=== PATIENT | female | born 1990 | race American Indian/Alaskan Native ===

== ENCOUNTER 2020-07-22 11:34 | Emergency (ER) | payer BC ==
[2020-07-22 13:24] LABS: Hematocrit 20.2 % (30.3-42.9); Mean Corpuscular HGB Conc 29 % (30-34); Platelet Count 584 K/mm3 (140-440); Red Blood Count 3.18 M/mm3 (3.65-5.03)
[2020-07-22 13:31] LABS: Hemoglobin 5.9 gm/dl (10.1-14.3); Mean Corpuscular Volume 64 fl (79-97); Red Cell Distribution Width 27.7 % (13.2-15.2)
[2020-07-22] MEDS ORDERED: SODIUM CHLORIDE 0.9% 500 ML 500 ML IV ONE (14:14)
[2020-07-22] MEDS ORDERED: SODIUM CHLORIDE 0.9% 500 ML 500 ML ONE (14:37)
[2020-07-22 15:09] LABS: Basophils % (Manual) 0 % (0.0-1.8); Eosinophils % (Manual) 0 % (0.0-4.3); Total Cells Counted 100
[2020-07-22 15:10] LABS: Anisocytosis 3+
[2020-07-22 15:11] LABS: Hypochromasia 2+; Platelet Estimate Consistent w Auto
[2020-07-22 17:12] VITALS: BP 100/54
--- NOTE | 2020-07-22 17:20 | Emergency Department Report ---
- General Chief complaint: Recheck/Abnormal Lab/Rx Stated complaint: LOW IRN BLOOD TRANS Time Seen by Provider: 07/22/20 14:03 Source: patient Mode of arrival: Ambulatory Limitations: No Limitations - History of Present Illness Initial comments: Chief complaint: "I think I need a transfusion." HPI this is a 30-year-old female with history of iron deficiency anemia who presents from her PCPs office with report of low hemoglobin 5. Patient has not had a transfusion on previous occasion. However recently patient has had severe fatigue with palpitations. She also has nausea shortness of breath. She just wants the energy to return back to work. Over the last several months patient has had long heavy menstrual cycles. Several months ago her glazing superintendent prescribed and recommended oral contraceptive therapy. Due to adverse side effects, she stopped taking the medication. Patient currently not menstruating. No previous history of bloody stools or hematemesis. She started taking iron therapy this past weekend. MD Complaint: generalized weakness -: Gradual, month(s) (Several months worse over the past few weeks.) Location: generalized Severity: moderate, severe Consistency: constant Improves with: rest Worsens with: movement, exertion Context: other (Recently diagnosed with severe anemia by PCP.) Associated Symptoms: other (Malaise fatigue nausea shortness of breath palpitations) - Related Data Previous Rx's Medication Instructions Recorded Last Taken Type Famotidine [Pepcid] 20 mg PO BID #10 tablet 06/17/14 Unknown Rx Allergies Allergy/AdvReac Type Severity Reaction Status Date / Time onion [Onion] Allergy Hives Verified 06/16/14 23:27 ED Review of Systems ROS: Stated complaint: LOW IRN BLOOD TRANS Other details as noted in HPI Comment: All other systems reviewed and negative Constitutional: malaise. denies: fever Respiratory: shortness of breath. denies: cough Cardiovascular: palpitations. denies: chest pain ED Past Medical Hx - Past Medical History Previous Medical History?: No - Surgical History Past Surgical History?: No - Social History Smoking Status: Never Smoker Substance Use Type: None - Medications Home Medications: Home Medications Medication Instructions Recorded Confirmed Last Taken Type Famotidine [Pepcid] 20 mg PO BID #10 tablet 06/17/14 Unknown Rx ED Physical Exam - General Limitations: No Limitations General appearance: alert, in no apparent distress - Head Head exam: Present: atraumatic, normocephalic - Eye Eye exam: Present: normal appearance - ENT ENT exam: Present: mucous membranes moist - Neck Neck exam: Present: normal inspection, full ROM - Respiratory Respiratory exam: Present: normal lung sounds bilaterally. Absent: respiratory distress, wheezes, rales, rhonchi - Cardiovascular Cardiovascular Exam: Present: normal rhythm, tachycardia, normal heart sounds. Absent: systolic murmur, diastolic murmur, rubs, gallop - GI/Abdominal GI/Abdominal exam: Present: soft, normal bowel sounds. Absent: distended, tenderness, guarding - Extremities Exam Extremities exam: Present: normal inspection - Neurological Exam Neurological exam: Present: alert, oriented X3 - Psychiatric Psychiatric exam: Present: normal affect, normal mood - Skin Skin exam: Present: warm, dry, intact, normal color. Absent: rash ED Course Vital Signs 07/22/20 07/22/20 07/22/20 12:12 13:46 14:00 Temperature 98.8 F Pulse Rate 100 H 94 H Respiratory 16 14 17 Rate Blood Pressure 106/64 Blood Pressure 112/34 [Right] O2 Sat by Pulse 100 99 100 Oximetry 07/22/20 07/22/20 07/22/20 15:12 15:27 15:57 Temperature 98.2 F 98.5 F Pulse Rate 81 80 79 Respiratory 16 14 16 Rate Blood Pressure 113/51 98/59 100/64 Blood Pressure [Right] O2 Sat by Pulse 100 100 100 Oximetry 07/22/20 07/22/20 07/22/20 16:27 16:57 17:10 Temperature 98.9 F Pulse Rate 84 86 78 Respiratory 16 16 18 Rate Blood Pressure 105/50 105/56 100/54 Blood Pressure [Right] O2 Sat by Pulse 100 100 100 Oximetry ED Medical Decision Making - Lab Data Result diagrams: 07/22/20 12:38 Laboratory Results - last 24 hr 07/22/20 07/22/20 12:38 12:40 WBC 4.9 RBC 3.18 L Hgb 5.9 L* Hct 20.2 L MCV 64 L MCH 19 L MCHC 29 L RDW 27.7 H Plt Count 584 H Add Manual Diff Complete Total Counted 100 Seg Neuts % (Manual) 59.0 Band Neutrophils % 0 Lymphocytes % (Manual) 35.0 Reactive Lymphs % (Man) 0 Monocytes % (Manual) 6.0 Eosinophils % (Manual) 0 Basophils % (Manual) 0 Metamyelocytes % 0 Myelocytes % 0 Promyelocytes % 0 Blast Cells % 0 Nucleated RBC % Not Reportable Seg Neutrophils # Man 2.9 Band Neutrophils # 0.0 Lymphocytes # (Manual) 1.7 Abs React Lymphs (Man) 0.0 Monocytes # (Manual) 0.3 Eosinophils # (Manual) 0.0 Basophils # (Manual) 0.0 Metamyelocytes # 0.0 Myelocytes # 0.0 Promyelocytes # 0.0 Blast Cells # 0.0 WBC Morphology Not Reportable Hypersegmented Neuts Not Reportable Hyposegmented Neuts Not Reportable Hypogranular Neuts Not Reportable Smudge Cells Not Reportable Toxic Granulation Not Reportable Toxic Vacuolation Not Reportable Dohle Bodies Not Reportable Pelger-Huet Anomaly Not Reportable Faviola Rods Not Reportable Platelet Estimate Consistent w auto Clumped Platelets Not Reportable Plt Clumps, EDTA Not Reportable Large Platelets Not Reportable Giant Platelets Not Reportable Platelet Satelliting Not Reportable Plt Morphology Comment Not Reportable RBC Morphology Not Reportable Dimorphic RBCs Not Reportable Polychromasia Not Reportable Hypochromasia 2+ Poikilocytosis Not Reportable Anisocytosis 3+ Microcytosis 2+ Macrocytosis Not Reportable Spherocytes Not Reportable Pappenheimer Bodies Not Reportable Sickle Cells Not Reportable Target Cells Not Reportable Tear Drop Cells Not Reportable Ovalocytes Not Reportable Helmet Cells Not Reportable [place] Bodies Not Reportable [place] Rings Not Reportable Daniel Cells Not Reportable Bite Cells Not Reportable Crenated Cell Not Reportable Elliptocytes Not Reportable Acanthocytes (Spur) Not Reportable Rouleaux Not Reportable Hemoglobin C Crystals Not Reportable Schistocytes Not Reportable Malaria parasites Not Reportable Lb Bodies Not Reportable Hem Pathologist Commnt No Blood Type O POSITIVE Antibody Screen Negative Crossmatch See Detail - Medical Decision Making Ms. Gresham presents with severe anemia presumably due to blood loss of menometrorrhagia versus iron deficiency. Due to tachycardia and orthostasis, urgent transfusion indicated. After transfusion tachycardia resolved. Blood pressure improved. She received 1 unit packed red blood cells according to current recommended guidelines. I have referred patient back to her glazing superintendent. Also referred patient to manager ed. Critical care attestation.: If time is entered above; I have spent that time in minutes in the direct care of this critically ill patient, excluding procedure time. ED Disposition Clinical Impression: Symptomatic anemia, Severe anemia, Microcytic anemia Disposition: TO HOME OR SELFCARE Is pt being admited?: No Does the pt Need Aspirin: No Condition: Stable Instructions: Iron Deficiency Anemia (ED), Iron Rich Diet (ED) Referrals: JASON PATTERSON MD [Staff Physician] - 3-5 Days Forms: Work/School Release Form(ED)
== END 2020-07-22 17:31 | disposition home or self-care (01) ==
LOC: ED 11:34
DX: D50.9 Iron deficiency anemia, unspecified (principal); Z79.899 Other long term (current) drug therapy; Z91.018 Allergy to other foods
CPT/HCPCS: 36415; 36430; 85007; 85025; 86850; 86900; 86901; 86920; 99284; J7040; P9016

== ENCOUNTER 2020-10-25 14:21 | Emergency (ER) | payer BC ==
--- NOTE | 2020-10-25 14:39 | Emergency Department Report ---
Blank Doc - Documentation Documentation: 30-year-old female that presents with headache and generalized weakness. Melanie ent denies any head injuries or trauma. Denies worse headache. Denies any visual changes. Stated started her menstrual cycle 3 days ago and is heavy. Patient stated has history of blood transfusion and symptoms are similar. Exam: Patient is neurologically stable. Neuro exam unremarkable. No facial drooping. No one-sided weakness. 1- This initial assessment/diagnostic orders/clinical plan/ treatment(s) is/are subject to change based on pt's health status, clinical progression and re- assessment by fellow clinical providers in the ED. Further treatment and workup at subsequent clinical provers discretion. Patient/guardians urged not to elope from ED as their condition may be serious if not clinically assessed and managed. 2-labs 3-UA
[2020-10-25 15:43] LABS: Mean Corpuscular HGB Conc 30 % (30-34); Platelet Count 580 K/mm3 (140-440); Red Blood Count 3.96 M/mm3 (3.65-5.03)
[2020-10-25 15:48] LABS: Hematocrit 27.3 % (30.3-42.9); Mean Corpuscular Volume 69 fl (79-97); Red Cell Distribution Width 22.1 % (13.2-15.2)
[2020-10-25 15:58] LABS: Alanine Aminotransferase 12 units/L (7-56); Albumin 4.3 g/dL (3.9-5); BUN/Creatinine Ratio 16; Blood Urea Nitrogen 13 mg/dL (7-17); Calcium 9.1 mg/dL (8.4-10.2); Hemolysis Index 2
[2020-10-25] MEDS ORDERED: ONDANSETRON 4 MG ODT TAB PO ONE (18:59)
[2020-10-25] MEDS ORDERED: IBUPROFEN 600 MG TAB PO ONE (18:59)
[2020-10-25] MEDS ORDERED: BUTALB/ACETAMINOPHEN/CAFFEINE TAB PO ONE (18:59)
--- NOTE | 2020-10-25 19:01 | Emergency Department Report ---
ED General Adult HPI - General Chief complaint: Headache Stated complaint: ANEMIA/CHECK UP Time Seen by Provider: 10/25/20 14:37 Source: patient Mode of arrival: Ambulatory Limitations: No Limitations - History of Present Illness Initial comments: Patient is a 30-year-old -Al[place]ian female with a history of iron deficiency anemia and who presents to the ED with complaint of acute onset persistent generalized weakness and diffuse headache for the last 3 days. Patient states that she felt the symptoms were 3 months ago and had to undergo blood transfusion because of worsening anemia. Patient states that she takes iron tablets every day for her chronic anemia. Patient denies dizziness, syncope, chest pain, shortness of breath, fever, chills, sore throat, nasal and sinus congestion, change in vision, neck pain, back pain, abdominal pain, palpitation or cough. MD Complaint: Headache, generalized weakness -: Sudden, days(s) (3) Location: head Radiation: non-radiation Severity scale (0 -10): 7 Quality: aching, sharp Consistency: constant Improves with: none Worsens with: none Associated Symptoms: denies other symptoms, headaches, loss of appetite, malaise, nausea/vomiting. denies: confusion, chest pain, cough, diaphoresis, fever/chills, rash, shortness of breath, syncope, weakness Treatments Prior to Arrival: none - Related Data Previous Rx's Medication Instructions Recorded Last Taken Type Famotidine [Pepcid] 20 mg PO BID #10 tablet 06/17/14 Unknown Rx Butalb/Acetamin/Caff 50-325-40 1 - 2 tab PO Q6HR PRN #15 tab 10/25/20 Unknown Rx [Fioricet 50-325-40] Naproxen 500 mg PO Q12H PRN #30 tablet 10/25/20 Unknown Rx Ondansetron [Zofran Odt] 4 mg PO Q6HR PRN #20 tab.rapdis 10/25/20 Unknown Rx Allergies Allergy/AdvReac Type Severity Reaction Status Date / Time onion [Onion] Allergy Hives Verified 06/16/14 23:27 ED Review of Systems ROS: Stated complaint: ANEMIA/CHECK UP Other details as noted in HPI Constitutional: weakness. denies: chills, fever Eyes: denies: eye pain, eye discharge, vision change ENT: denies: ear pain, throat pain Respiratory: denies: cough, shortness of breath, wheezing Cardiovascular: denies: chest pain, palpitations Endocrine: no symptoms reported Gastrointestinal: denies: abdominal pain, nausea, diarrhea Genitourinary: denies: urgency, dysuria, discharge Musculoskeletal: denies: back pain, joint swelling, arthralgia Skin: denies: rash, lesions Neurological: headache. denies: weakness, paresthesias Psychiatric: denies: anxiety, depression Hematological/Lymphatic: denies: easy bleeding, easy bruising ED Past Medical Hx - Past Medical History Previous Medical History?: Yes Additional medical history: anemia - Social History Smoking Status: Never Smoker Substance Use Type: None - Medications Home Medications: Home Medications Medication Instructions Recorded Confirmed Last Taken Type Famotidine [Pepcid] 20 mg PO BID #10 tablet 06/17/14 Unknown Rx Butalb/Acetamin/Caff 50-325-40 1 - 2 tab PO Q6HR PRN #15 tab 10/25/20 Unknown Rx [Fioricet 50-325-40] Naproxen 500 mg PO Q12H PRN #30 tablet 10/25/20 Unknown Rx Ondansetron [Zofran Odt] 4 mg PO Q6HR PRN #20 tab.rapdis 10/25/20 Unknown Rx ED Physical Exam - General Limitations: No Limitations General appearance: alert, in no apparent distress - Head Head exam: Present: atraumatic, normocephalic, normal inspection - Eye Eye exam: Present: normal appearance, PERRL, EOMI Pupils: Present: normal accommodation - ENT ENT exam: Present: normal exam, normal orophraynx, mucous membranes moist, TM's normal bilaterally, normal external ear exam - Neck Neck exam: Present: normal inspection, full ROM - Respiratory Respiratory exam: Present: normal lung sounds bilaterally. Absent: respiratory distress, wheezes, rales, rhonchi, chest wall tenderness, accessory muscle use, decreased breath sounds, other - Cardiovascular Cardiovascular Exam: Present: regular rate, normal rhythm, normal heart sounds. Absent: systolic murmur, diastolic murmur, rubs, gallop - GI/Abdominal GI/Abdominal exam: Present: soft, normal bowel sounds. Absent: tenderness, guarding, rebound, hyperactive bowel sounds, hypoactive bowel sounds, organomegaly - Extremities Exam Extremities exam: Present: normal inspection, full ROM, normal capillary refill - Back Exam Back exam: Present: normal inspection, full ROM. Absent: CVA tenderness (L), muscle spasm, paraspinal tenderness, vertebral tenderness - Neurological Exam Neurological exam: Present: alert, oriented X3, CN II-XII intact, normal gait, reflexes normal - Psychiatric Psychiatric exam: Present: normal affect, normal mood - Skin Skin exam: Present: warm, dry, intact, normal color. Absent: rash ED Course Vital Signs 10/25/20 10/25/20 10/25/20 14:28 18:44 19:58 Temperature 98.1 F Pulse Rate 80 90 Respiratory 16 16 18 Rate Blood Pressure 103/72 117/78 [Right] O2 Sat by Pulse 100 100 Oximetry 10/25/20 10/25/20 19:59 20:09 Temperature Pulse Rate 88 Respiratory 18 16 Rate Blood Pressure 104/62 [Right] O2 Sat by Pulse 98 Oximetry ED Medical Decision Making - Lab Data Result diagrams: 10/25/20 15:07 10/25/20 15:07 - Medical Decision Making This is a 30-year-old -Algerian female with a history of iron deficiency anemia and who presents to the ED with complaint of acute onset persistent generalized weakness and diffuse headache for the last 3 days. Patient states that she felt the symptoms were 3 months ago and had to undergo blood transfusion. Patient states that she takes iron tablets every day for her chronic anemia. In the ED, patient is alert and oriented x3 and is not in distress. Patient is hemodynamically stable. Patient was treated for pain in the ED for headache. Lab test results were reviewed and are all nonactionable, her H&H is better than it was 3 months ago when she had to undergo blood transfusion. On reevaluation, patient's pain is well controlled medications. Patient will discharge home on medications for headache and was advised to follow-up with her primary care physician in 3 to 5 days for reevaluation. Patient is advised return to the ED immediately if symptoms get worse. - Differential Diagnosis Migraine headache; tension headache; cluster headache; sinus headache Critical care attestation.: If time is entered above; I have spent that time in minutes in the direct care of this critically ill patient, excluding procedure time. ED Disposition Clinical Impression: Chronic iron deficiency anemia, Generalized weakness Acute tension-type headache Qualifiers: Intractability: not intractable Qualified Code(s): G44.209 - Tension-type headache, unspecified, not intractable Disposition: DC-01 TO HOME OR SELFCARE Is pt being admited?: No Does the pt Need Aspirin: No Condition: Stable Instructions: Preventing Iron Deficiency Anemia, Adult, Weakness, [id number], Tension Headache, Adult, [id number] Additional Instructions: All lab test results were reviewed and are all nonactionable and stable. Therefore take medications as needed for headache and pain, doing plenty of fluids and follow-up with your primary care physician in 5 to 7 days for reevaluation. Return to the ED immediately if symptoms get worse. Prescriptions: Butalb/Acetamin/Caff 50-325-40 [Fioricet 50-325-40] 1 - 2 tab PO Q6HR PRN #15 tab PRN Reason: Headache Naproxen 500 mg PO Q12H PRN #30 tablet PRN Reason: Pain , Severe (7-10) Ondansetron [Zofran Odt] 4 mg PO Q6HR PRN #20 tab.rapdis PRN Reason: Nausea Referrals: ZINA MCNULTY MD [Primary Care Provider] - 3-5 Days Time of Disposition: 20:46 Print Language: MOZAMBICAN
[2020-10-25 20:01] LABS: Bilirubin,Urine NEG (Negative); Blood,Urine SM (Negative); Color,Urine Yellow (Yellow); Mucus,Urine 3+ /HPF; Protein,Urine <15 mg/dL mg/dL (Negative)
[2020-10-25 20:05] LABS: HCG Qualitative,Urine Negative (Negative)
[2020-10-25 20:10] VITALS: BP 104/62
[2020-10-25 20:10] LABS: Anisocytosis 1+; Hypochromasia 2+; Total Cells Counted 100
[2020-10-25 20:11] LABS: Ovalocytes Rare
[2020-10-25 20:12] LABS: Tear Drop Cells Rare
[2020-10-25 20:13] LABS: Bite Cells Rare; Helmet Cells Rare; Platelet Estimate Consistent w Auto
== END 2020-10-25 20:55 | disposition home or self-care (01) ==
LOC: ED 14:21
DX: G44.209 Tension-type headache, unspecified, not intractable (principal); D50.9 Iron deficiency anemia, unspecified; R53.1 Weakness; Z79.899 Other long term (current) drug therapy; Z91.018 Allergy to other foods
CPT/HCPCS: 36415; 80053; 81001; 81025; 84703; 85007; 85025; 86850; 86900; 86901; Q0162

== ENCOUNTER 2021-09-05 21:48 | Emergency (ER) | payer BC ==
[2021-09-05 23:05] VITALS: BP 151/63
[2021-09-05 23:55] LABS: Blood Urea Nitrogen 12 mg/dL (7-17); Calcium 8.8 mg/dL (8.4-10.2); Hemolysis Index 5
[2021-09-06 00:30] LABS: Basophils % (Auto) 0.3 % (0.0-1.8); Eosinophils # (Auto) 0.1 K/mm3 (0.0-0.4); Eosinophils % (Auto) 0.9 % (0.0-4.3); Lymphocytes # (Auto) 0.9 K/mm3 (1.2-5.4); Lymphocytes % (Auto) 10.7 % (13.4-35.0); Mean Corpuscular HGB Conc 30 % (30-34); Mean Corpuscular Volume 75 fl (79-97); Monocytes # (Auto) 0.3 K/mm3 (0.0-0.8); Monocytes % (Auto) 3.4 % (0.0-7.3); Platelet Count 314 K/mm3 (140-440); Red Blood Count 4.08 M/mm3 (3.65-5.03); Red Cell Distribution Width 19.1 % (13.2-15.2)
[2021-09-06 00:35] LABS: BUN/Creatinine Ratio 20
[2021-09-06] MEDS ORDERED: METOCLOPRAMIDE 10 MG/2 ML INJ IV ONE (00:39)
[2021-09-06] MEDS ORDERED: FAMOTIDINE 20 MG/2 ML INJ IV ONE (00:39)
[2021-09-06] MEDS ORDERED: diphenhydrAMINE 50 MG/ML VIAL IV ONE (00:39)
[2021-09-06] MEDS ORDERED: SODIUM CHLORIDE 0.9% 1000 ML 1,000 ML IV ONE (00:39)
[2021-09-06] MEDS ORDERED: KETOROLAC 30 MG/1 ML INJ IV ONE (00:40)
[2021-09-06 00:42] LABS: Hematocrit 30.6 % (30.3-42.9)
[2021-09-06 00:57] LABS: Alanine Aminotransferase 6 units/L (7-56); Albumin 4.1 g/dL (3.9-5)
[2021-09-06 01:04] LABS: Bilirubin,Direct < 0.2 mg/dL (0-0.2)
[2021-09-06 01:11] LABS: Bilirubin,Urine NEG (Negative); Blood,Urine LG (Negative); Color,Urine Amber (Yellow); Mucus,Urine 3+ /HPF; Sperm,Urine 1+ /HPF (NP); Urobilinogen,Urine < 2.0 mg/dL (<2.0)
[2021-09-06 01:13] LABS: RBC,Urine > 182.0 /HPF (0.0-6.0)
[2021-09-06] MEDS ORDERED: cefTRIAXone/NS 1 GM/50 ML 1 GM/50 ML BAG IV ONE (01:34)
--- NOTE | 2021-09-06 02:27 | Emergency Department Report ---
ED Headache HPI - General Chief Complaint: Abdominal Pain Stated Complaint: SICK/MIGRAINE Source: patient - History of Present Illness Initial Comments: Patient is a 31-year-old -[place] female with a history of chronic mi graine headaches who presents to the ED with complaint of acute exacerbation of her chronic migraine headaches characterized by severe right temporal headache with nausea and vomiting for the last 1 week, worse in the last 3 days. Patient also complains of suprapubic pain due to menstrual cramps for the last 2 days. Patient states that the migraine headaches are typical of her chronic migraine h eadache exacerbations but which could not respond to any medications since she ran out of her regular migraine headache medications. Patient denies dizziness, syncope, fever, chills, dysuria, urinary frequency and urgency, diarrhea, cough, chest pain or shortness of breath, neck pain or change in vision, sore throat, nasal and sinus congestion. Timing/Duration: 1 week (1) Quality: severe, sharp Head Injury Location: temporal (RIGHT) Recent Head Trauma: chronic headaches Modifying Factors: improves with: exposure to light, movement Associated Symptoms: denies symptoms, nausea/vomiting. denies: confusion, fatigue, fever/chills, flushing, loss of consciousness, nasal congestion, nasal drainage, numbness in legs/feet, rash, seizures, sinus infection, stiff neck, vision changes, weakness Allergies/Adverse Reactions: Allergies onion [Onion] Allergy (Verified 06/16/14 23:27) Hives Home Medications: Ambulatory Orders Famotidine [Pepcid] 20 mg PO BID #10 tablet 06/17/14 Naproxen 500 mg PO Q12H PRN #30 tablet 10/25/20 Ondansetron [Zofran Odt] 4 mg PO Q6HR PRN #20 tab.rapdis 10/25/20 Butalb/Acetamin/Caff 50-325-40 [Fioricet 50-325-40] 1 - 2 tab PO Q6HR PRN #15 tab 09/06/21 Famotidine [Pepcid] 20 mg PO BID #60 tablet 09/06/21 Ibuprofen [Motrin] 600 mg PO Q8H PRN #30 tablet 09/06/21 Ondansetron [Zofran Odt] 4 mg PO Q6HR PRN #20 tab.rapdis 09/06/21 ED Review of Systems ROS: Stated complaint: SICK/MIGRAINE Other details as noted in HPI Constitutional: denies: chills, fever Eyes: denies: eye pain, eye discharge, vision change ENT: denies: ear pain, throat pain Respiratory: denies: cough, shortness of breath, wheezing Cardiovascular: denies: chest pain, palpitations Endocrine: no symptoms reported Gastrointestinal: nausea, vomiting. denies: abdominal pain, diarrhea Genitourinary: denies: urgency, dysuria, discharge Musculoskeletal: denies: back pain, joint swelling, arthralgia Skin: denies: rash, lesions Neurological: headache. denies: weakness, paresthesias Psychiatric: denies: anxiety, depression Hematological/Lymphatic: denies: easy bleeding, easy bruising ED Past Medical Hx - Past Medical History Previous Medical History?: Yes Hx Headaches / Migraines: Yes Additional medical history: anemia - Surgical History Past Surgical History?: No - Social History Smoking Status: Never Smoker Substance Use Type: None - Medications Home Medications: Home Medications Medication Instructions Recorded Confirmed Last Taken Type Famotidine [Pepcid] 20 mg PO BID #10 tablet 06/17/14 Unknown Rx Naproxen 500 mg PO Q12H PRN #30 tablet 10/25/20 Unknown Rx Ondansetron [Zofran Odt] 4 mg PO Q6HR PRN #20 tab.rapdis 10/25/20 Unknown Rx Butalb/Acetamin/Caff 50-325-40 1 - 2 tab PO Q6HR PRN #15 tab 09/06/21 Unknown Rx [Fioricet 50-325-40] Famotidine [Pepcid] 20 mg PO BID #60 tablet 09/06/21 Unknown Rx Ibuprofen [Motrin] 600 mg PO Q8H PRN #30 tablet 09/06/21 Unknown Rx Ondansetron [Zofran Odt] 4 mg PO Q6HR PRN #20 tab.rapdis 09/06/21 Unknown Rx ED Physical Exam - General Limitations: No Limitations General appearance: alert, in no apparent distress - Head Head exam: Present: atraumatic, normocephalic, normal inspection - Eye Eye exam: Present: normal appearance, PERRL, EOMI Pupils: Present: normal accommodation - ENT ENT exam: Present: normal exam, normal orophraynx, mucous membranes moist, TM's normal bilaterally, normal external ear exam - Neck Neck exam: Present: normal inspection, full ROM - Respiratory Respiratory exam: Present: normal lung sounds bilaterally. Absent: respiratory distress, rales, rhonchi, stridor, chest wall tenderness, accessory muscle use, decreased breath sounds - Cardiovascular Cardiovascular Exam: Present: regular rate, normal rhythm, normal heart sounds. Absent: systolic murmur, diastolic murmur, rubs, gallop - GI/Abdominal GI/Abdominal exam: Present: soft, normal bowel sounds. Absent: distended, tenderness, guarding, rigid, hyperactive bowel sounds, hypoactive bowel sounds, organomegaly - Extremities Exam Extremities exam: Present: normal inspection, full ROM, normal capillary refill - Back Exam Back exam: Present: normal inspection, full ROM. Absent: tenderness, CVA tenderness (R), CVA tenderness (L), muscle spasm, paraspinal tenderness, vertebral tenderness - Neurological Exam Neurological exam: Present: alert, oriented X3, CN II-XII intact, normal gait, reflexes normal - Psychiatric Psychiatric exam: Present: normal affect, normal mood - Skin Skin exam: Present: warm, dry, intact, normal color. Absent: rash ED Course Vital Signs 09/05/21 23:02 Temperature 98.1 F Pulse Rate 91 H Respiratory 15 Rate Blood Pressure 151/63 [Left] O2 Sat by Pulse 100 Oximetry ED Medical Decision Making - Lab Data Result diagrams: 09/05/21 23:22 12 23:22 - Medical Decision Making This is a 31-year-old -[place] female with a history of chronic migraine headaches who presents to the ED with complaint of acute exacerbation of her chronic migraine headaches characterized by severe right temporal headache with nausea and vomiting for the last 1 week, worse in the last 3 days. Patient also complains of suprapubic pain due to menstrual cramps for the last 2 days. Patient states that the migraine headaches are typical of her chronic migraine headache exacerbations but which could not respond to any medications since she ran out of her regular migraine headache medications. In the ED, patient is alert and oriented x3 and is not in any distress. Patient is hemodynamically stable. Patient was treated in the ED for migraine headaches and lab test results were reviewed and are all nonactionable except for urinalysis that showed significant urinary tract infection. Patient was treated in the ED with antibiotics for UTI. On reevaluation, patient's headache resolved medications. Patient will discharge home on pain medications and antibiotics and advised to follow-up with her primary care physician in 7 to 10 days for reevaluation or return to the ED immediately if symptoms get worse. - Differential Diagnosis Migraine headache; tension headache; dysmenorrhea; UTI; Critical care attestation.: If time is entered above; I have spent that time in minutes in the direct care of this critically ill patient, excluding procedure time. ED Disposition Clinical Impression: Nausea and vomiting in adult, Severe dysmenorrhea, Acute urinary tract infection Migraine headache with aura Qualifiers: Status migrainosus presence: with status migrainosus Intractability: not intractable Qualified Code(s): G43.101 - Migraine with aura, not intractable, with status migrainosus Disposition: HOME / SELF CARE / HOMELESS Is pt being admited?: No Does the pt Need Aspirin: No Condition: Stable Instructions: Abdominal Pain (ED), Recurrent Migraine Headache, [id number], Nausea and Vomiting, Adult, [id number], Urinary Tract Infection, Adult, [id number], Dysmenorrhea, [id number] Additional Instructions: All lab test results were reviewed and are all nonactionable except for urinary tract infection in urinalysis. Therefore take medications as needed for migraine headaches, as well as for dysmenorrhea. Take medications as well for nausea and vomiting, drink plenty of fluids and follow-up with your primary care physician in 7 to 10 days for reevaluation. Return to the ED immediately if symptoms get worse. Prescriptions: Butalb/Acetamin/Caff 50-325-40 [Fioricet 50-325-40] 1 - 2 tab PO Q6HR PRN #15 tab PRN Reason: Headache Ibuprofen [Motrin] 600 mg PO Q8H PRN #30 tablet PRN Reason: Pain Famotidine [Pepcid] 20 mg PO BID #60 tablet Ondansetron [Zofran Odt] 4 mg PO Q6HR PRN #20 tab.rapdis PRN Reason: Nausea Referrals: [facility] [Provider Group] - 7-10 days Forms: Work/School Release Form(ED) Time of Disposition: 02:28 Print Language: MALAWIAN
== END 2021-09-06 02:50 | disposition home or self-care (01) ==
LOC: ED 21:48
DX: R11.2 Nausea with vomiting, unspecified (principal); N94.6 Dysmenorrhea, unspecified; N39.0 Urinary tract infection, site not specified; G43.101 Migraine with aura, not intractable, with status migrainosus
CPT/HCPCS: 36415; 80048; 80076; 81001; 82150; 83690; 84703; 85025; 87086; 96361; 96365; 96375; 99283; J0696; J1200; J1885; J2765; J3490; J7030; Q0162